=== PATIENT | male | born 2000 | race Caucasian/White ===

== ENCOUNTER 2024-02-28 00:15 | Emergency (ER) | payer OTHER ==
[~2024-02-28] VITALS: Ht 185.4 cm; Wt 90.0 kg
[2024-02-28 00:19] VITALS: O2SAT 98
[2024-02-28] MEDS ORDERED: FLUORESCEIN SODIUM 1MG/STRIP LEFTEYE ONE (00:45)
[2024-02-28] MEDS ORDERED: TETRACAINE 0.5% OPHTH DROPS 4ML LEFTEYE ONE (00:45)
[2024-02-28] MEDS: ACETAMINOPHEN 500MG TABLET PO ONE (01:39)
[2024-02-28] MEDS ORDERED: OFLO5DRO LEFTEYE (03:34)
[2024-02-28 04:25] VITALS: BP 120/57; PULSE 92; RESP 18; O2SAT 98
== END 2024-02-28 04:26 | disposition home or self-care (01) ==
LOC: ER 00:42
DX: S05.02XA Injury of conjunctiva and corneal abrasion without foreign body, left eye, initial encounter (principal); R51.9 Headache, unspecified; Y08.89XA Assault by other specified means, initial encounter; Y93.89 Activity, other specified; Y92.89 Other specified places as the place of occurrence of the external cause; Y99.8 Other external cause status
CPT/HCPCS: 99284